=== PATIENT | male | born 2005 | race Caucasian/White ===

== ENCOUNTER 2023-09-09 12:26 | Inpatient (IN) | payer OTHER, SELFPAY ==
[2023-09-09 12:31] VITALS: BMI 40.9
[2023-09-09 12:32] VITALS: BP 130/78; PULSE 66; RESP 13; TEMP 36.7; O2SAT 98
[2023-09-09 14:00] VITALS: BP 128/77; PULSE 70; RESP 14; TEMP 36.6; O2SAT 98
--- NOTE | 2023-09-09 14:51 | PC.NURSE ---
PT WAS A DIRECT ADMIT FROM THE [facility] IN [place]. PT WAS ADMITTED FOR INCREASED THOUGHTS OF SI. UPON ADMIT TO THE NPU PT APPEARS FLAT IN AFFECT. PT STATED TO THIS NURSE THAT HIS PSYCHIATRIST STATED THAT HE SHOULD COME IN BECAUSE AFTER HE RESTARTED TAKING ZOLOFT HIS SUICIDAL THOUGHTS STARTED GETTING WORSE. PT STATED THAT HE IS UNSURE ON WHETHER OR NOT THIS IS DUE TO THE MEDICATION OR LIFE STRESSORS. PT ENDORSE ANXIETY RATING IT A 1/10 ON A SCALE OF 0-10 WHERE 0 IS NONE AND 10 IS THE WORST. PT CURRENTLY DENIES SI/HI/AH/VH AND DEPRESSION. PT STATED THE LAST TIME HE THOUGHT OF HURTING HIMSELF WAS A COUPLE WEEKS AGO. PT ENDORSES HAVING HOMICIDAL THOUGHTS ABOUT A MONTH AGO. PT STATES HE HAS HAD BRAIN SURGERY BUT COULD NOT EXPLAIN THE REASON, PT ALSO STATES THAT HE HAS A RIGHT SIDED VISUAL FIELD CUT BUT COULD NOT EXPLAIN THE CAUSE.
[2023-09-09 20:03] VITALS: BP 152/79; PULSE 66; RESP 18; TEMP 36.6; O2SAT 97
[2023-09-09] MEDS: topiramate 100 mg Tablet PO (20:21)
[2023-09-09] MEDS: lacosamide 50 mg Tablet 200 MG PO (20:21)
[2023-09-09] MEDS: CENOBAMATE 50 MG 50 EACH PO (20:21)
[2023-09-09] MEDS: NON-FORMULARY MEDICATION (Clobazam 20 mg tablet) 20 EACH PO (20:21)
[2023-09-09 21:30] VITALS: PULSE 74; O2SAT 98
[2023-09-10 06:00] VITALS: BP 101/56; PULSE 51; RESP 16; TEMP 36.4; O2SAT 97
[2023-09-10] MEDS: topiramate 25 mg Tablet 50 MG PO (08:43)
[2023-09-10] MEDS: NON-FORMULARY MEDICATION (Clobazam 20 mg tablet) 20 EACH PO ×2 (08:43→20:08)
[2023-09-10] MEDS: lacosamide 50 mg Tablet 200 MG PO ×2 (08:43→20:07)
--- NOTE | 2023-09-10 11:31 | W.PM.NPUH&PS ---
Providers/Chief Complaint Admitting Physician: Homer Hernandez MD Chief Complaint: SI HPI NPU History of Present Illness Jeremy Maldonado is a 18 year old male who presented to outside emergency department reportedly directly from his psychiatrist office with reports of suicidal ideation with a plan to either stab himself or walk in front of a semitruck. 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 They identified him reporting that another cost of that procedure was that he lost some vision and has had some level of being withdrawn since then. There are reports that he ran out of his Zoloft which had been a very functional medication for him. In their examination of him there is some report of a history of ADHD and occasional homicidal thoughts and anger. His laboratory studies were essentially normal with no significant outliers. He was positive for benzodiazepines but is prescribed clobazam. He was transferred to [facility] and admitted to the neuropsychiatric unit for definitive treatment of these issues. He presented today reporting: CHIEF COMPLAINT Patient reports feelings of anxiety and depression. He has been having suicidal thoughts but denies any intent or plan. HISTORY OF THE PRESENT COMPLAINT Jeremy, a 19-year-old male, has been dealing with symptoms of anxiety and depression. He has been on Zoloft for these conditions, but recently ran out of his medication. He expressed a desire to increase his dosage from 100mg to 200mg, but his healthcare provider suggested a more cautious approach, increasing the dosage by 50mg increments. He reported having thoughts of self-harm, specifically mentioning a scenario where he would stab himself in the Dhaval's apple. However, he clarified that these thoughts were not indicative of an immediate desire to harm himself, but rather a reflection of his frustration and low mood. He also mentioned having issues with anger management, which he noticed after starting to have seizures. Jeremy has a history of seizures, which began around 2017. 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 He underwent surgery to address this issue, which resulted in some loss of vision. He is currently taking a new medication for his seizures, which has been effective in preventing them. In terms of his emotional state, Jeremy described feeling low, helpless, hopeless, and worthless. He also reported having sleep difficulties, although he does not believe these are related to his depression. He mentioned that he often worries about what others think of him, which contributes to his anxiety. He also experiences physical symptoms of anxiety, such as a racing heart and sweaty palms, particularly when facing new situations. Jeremy has a history of therapy, which he began in 2022. However, he stopped attending therapy sessions in July because he felt they were not making progress. He also mentioned a traumatic experience in his childhood, where he was bullied for a year at a [employer] school he attended. This experience has left a lasting impact on him, and he believes it may have contributed to his current mental health issues. In terms of substance use, Jeremy reported that he does not smoke, drink, or use drugs, as these substances interfere with his seizures. He is currently unemployed and has been looking for a job. He has not been in a romantic relationship and has not had children. He identifies as heterosexual. He has a belief in a higher power, referring to it as the man upstairs . During the consultation, Jeremy also mentioned that he had severe downs and had held a knife to himself but talked himself out of it, citing his family as a reason not to harm himself. He described this act as selfish. He also mentioned that he has a strong memory, which he discovered after his surgery. We discussed the risks, benefits and alternatives of continuing the Zoloft and possibly increasing it to 150 mg p.o. daily ultimately and he understood and agreed to proceed as is documented in this note. MENTAL HEALTH HISTORY Patient has been on Zoloft for anxiety and depression. He has been taking it regularly until two days ago. He has been on no other psychiatric medication. He has been in therapy since 2022 but stopped in July because he felt it wasn't helping. He has never been in a psychiatric hospital before. SOCIAL HISTORY Patient does not smoke, drink, or use any drugs due to their effect on his seizures. He has a family history of mental health issues, with his uncle being in an asylum and heavily medicated, and his mother and sisters also having mental health issues. He has a history of being bullied in school, which he feels may have contributed to his current mental health issues. Currently unemployed and living with his parents and siblings. No legal issues reported. Meds NPU Home Medications Medication Instructions Recorded Confirmed Last Taken Type cenobamate 50 mg tablet (Xcopri) 50 mg PO BEDTIME 09/09/23 09/09/23 Unknown History clobazam 20 mg tablet 20 mg PO BID 09/09/23 09/09/23 Unknown History lacosamide 100 mg tablet 200 mg PO BID 09/09/23 09/09/23 Unknown History sertraline 100 mg tablet 100 mg PO DAILY 09/09/23 09/09/23 Unknown History topiramate 50 mg tablet 50 mg PO DAILY 09/09/23 09/09/23 Unknown History topiramate 50 mg tablet 100 mg PO BEDTIME 09/09/23 09/09/23 Unknown History Allergies Allergy/AdvReac Type Severity Reaction Status Date / Time nut - unspecified Allergy Unknown Unknown Verified 09/09/23 15:39 Fish Containing Products Allergy Unknown Verified 09/09/23 15:26 tree nut Allergy Unknown Verified 09/09/23 15:26 Mental Status Exam MSE Comments: This is an obese white male in hospital scrubs with limited grooming and adequate eye contact. No abnormal movements except for mild psychomotor retardation. Cooperative with exam in mild distress. Speech was decreased rate and volume. Mood described as depressed and anxious, affect congruent . Thought process organized. Thought content: Patient reports feelings of anxiety and depression. He has been having suicidal thoughts but denies any intent or plan. He also denied homicidal ideation. He r does report having difficulty managing his anger since his seizures started. He also reports having obsessive thoughts and being very anxious about what others think of him. No current thoughts of self-harm or harm to others. No paranoia or hallucinations reported. there were no delusions reported or noted, he denied any auditory or visual hallucinations. Attention and concentration appeared intact and memory appeared mostly reliable but none were formally tested. He is alert and oriented x3. Insight and judgment are limited and impulse control is limited. 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 He reports feelings of anxiety and depression and has been having suicidal thoughts. He denies any intent or plan. He has a family history of mental health issues. He has been on Zoloft for his mental health issues but stopped taking it two days ago. He has been in therapy but stopped because he felt it wasn't helping. 1. Continue current medication. 2. Continue every 15 minute checks for safety. 3. Encourage individual, group and milieu therapy. 4. Encourage sober living treatment after discharge at the highest level of care to which he is willing to commit. Involuntary Hold Information 96 Hour Hold: 96 Hour Involuntary Admission: No Attestations NPU Medical Necessity Statement*: Inpatient hospitalization is medically necessary and the clinically appropriate intervention at this time. We will monitor medications and make changes as indicated. He will be in the hospital for over 2 midnights. Likely length of stay 2-3 days. Coding Level of Care Code Acute Code for Chg Fwd Diagnoses Status post craniotomy Z98.890 Status post lobectomy of brain Z90.89 Major depressive disorder, recurrent severe without psychotic features F33.2 Anxiety disorder F41.9
[2023-09-10 14:00] VITALS: BP 144/79; PULSE 57; RESP 13; TEMP 36.8; O2SAT 98
[2023-09-10] MEDS: CENOBAMATE 50 MG 50 EACH PO (20:08)
[2023-09-10] MEDS: topiramate 100 mg Tablet PO (20:08)
[2023-09-10] MEDS: cetylpyridinium Lozenge 1 EACH MUCOUS MEM (20:10)
[2023-09-10 20:32] VITALS: BP 144/87; PULSE 69; RESP 18; TEMP 36.6; O2SAT 98
[2023-09-11 06:00] VITALS: BP 123/73; PULSE 85; RESP 16; TEMP 36.4; O2SAT 98
--- NOTE | 2023-09-11 07:59 | W.PM.NPUPNS ---
Subjective NPU Subjective: Patient presented today reporting that he is doing fine. He reports that he is not having any increase in suicidal thinking and that he continues to feel safe to go home. We discussed the plan of connecting with the social work team tomorrow and then considering discharge planning. We discussed the likelihood of discharge in the next 48 hours. He denied any side effects of the medication. Mental Status Exam MSE Comments: This is an obese white male in hospital scrubs with limited grooming and adequate eye contact. No abnormal movements except for mild psychomotor retardation. Cooperative with exam in mild distress. Speech was decreased rate and volume. Mood described as depressed and anxious, affect congruent . Thought process organized. Thought content: Patient reports feelings of anxiety and depression. He has been having suicidal thoughts but denies any intent or plan. He also denied homicidal ideation. He r does report having difficulty managing his anger since his seizures started. He also reports having obsessive thoughts and being very anxious about what others think of him. No current thoughts of self-harm or harm to others. No paranoia or hallucinations reported. there were no delusions reported or noted, he denied any auditory or visual hallucinations. Attention and concentration appeared intact and memory appeared mostly reliable but none were formally tested. He is alert and oriented x3. Insight and judgment are limited and impulse control is limited. 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 He reports feelings of anxiety and depression and has been having suicidal thoughts. He denies any intent or plan. He has a family history of mental health issues. He has been on Zoloft for his mental health issues but stopped taking it two days ago. He has been in therapy but stopped because he felt it wasn't helping. 1. Continue current medication. Consider increasing Zoloft in the morning. 2. Continue every 15 minute checks for safety. 3. Encourage individual, group and milieu therapy. 4. Encourage sober living treatment after discharge at the highest level of care to which he is willing to commit. Involuntary Hold Information 96 Hour Hold: 96 Hour Involuntary Admission: No Attestations NPU Medical Necessity Statement*: Inpatient hospitalization is medically necessary and the clinically appropriate intervention at this time. We will monitor medications and make changes as indicated. Likely length of stay 1-3 days. Coding Level of Care Code Acute Code for Chg Fwd Diagnoses Status post craniotomy Z98.890 Status post lobectomy of brain Z90.89 Major depressive disorder, recurrent severe without psychotic features F33.2 Anxiety disorder F41.9
[2023-09-11] MEDS: topiramate 25 mg Tablet 50 MG PO (09:04)
[2023-09-11] MEDS: lacosamide 50 mg Tablet 200 MG PO ×2 (09:07→20:14)
[2023-09-11] MEDS: NON-FORMULARY MEDICATION (Clobazam 20 mg tablet) 20 EACH PO ×2 (09:07→20:14)
[2023-09-11 14:00] VITALS: BP 147/70; PULSE 50; RESP 13; TEMP 36.9; O2SAT 99
[2023-09-11 19:55] VITALS: BP 147/78; PULSE 58; RESP 16; TEMP 36.4; O2SAT 98
[2023-09-11] MEDS: CENOBAMATE 50 MG 50 EACH PO (20:13)
[2023-09-11] MEDS: topiramate 100 mg Tablet PO (20:15)
[2023-09-12 06:00] VITALS: BP 129/78; PULSE 79; RESP 16; TEMP 36.3; O2SAT 97
[2023-09-12] MEDS: topiramate 25 mg Tablet 50 MG PO (08:44)
[2023-09-12] MEDS: lacosamide 50 mg Tablet 200 MG PO (08:45)
[2023-09-12] MEDS: NON-FORMULARY MEDICATION (Clobazam 20 mg tablet) 20 EACH PO (08:45)
[2023-09-12] MEDS: sertraline 100 mg Tablet PO (12:57)
[2023-09-12 14:00] VITALS: BP 136/66; PULSE 79; RESP 16; TEMP 36.6; O2SAT 98
--- NOTE | 2023-09-12 15:02 | W.PM.NPUDCS ---
Diagnoses at Discharge Discharge Diagnosis (1) Status post craniotomy: Status: Acute (2) Status post lobectomy of brain: Status: Acute (3) Major depressive disorder, recurrent severe without psychotic features: Status: Acute (4) Anxiety disorder: Status: Acute Reason for Visit Reason for Visit: SI Brief History: History of Present Illness Jeremy Maldonado is a 18 year old male who presented to outside emergency department reportedly directly from his psychiatrist office with reports of suicidal ideation with a plan to either stab himself or walk in front of a semitruck. 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 They identified him reporting that another cost of that procedure was that he lost some vision and has had some level of being withdrawn since then. There are reports that he ran out of his Zoloft which had been a very functional medication for him. In their examination of him there is some report of a history of ADHD and occasional homicidal thoughts and anger. His laboratory studies were essentially normal with no significant outliers. He was positive for benzodiazepines but is prescribed clobazam. He was transferred to [facility] and admitted to the neuropsychiatric unit for definitive treatment of these issues. He presented today reporting: CHIEF COMPLAINT Patient reports feelings of anxiety and depression. He has been having suicidal thoughts but denies any intent or plan. HISTORY OF THE PRESENT COMPLAINT Jeremy, a 19-year-old male, has been dealing with symptoms of anxiety and depression. He has been on Zoloft for these conditions, but recently ran out of his medication. He expressed a desire to increase his dosage from 100mg to 200mg, but his healthcare provider suggested a more cautious approach, increasing the dosage by 50mg increments. He reported having thoughts of self-harm, specifically mentioning a scenario where he would stab himself in the [place]haval's apple. However, he clarified that these thoughts were not indicative of an immediate desire to harm himself, but rather a reflection of his frustration and low mood. He also mentioned having issues with anger management, which he noticed after starting to have seizures. Jeremy has a history of seizures, which began around 2017. 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 He underwent surgery to address this issue, which resulted in some loss of vision. He is currently taking a new medication for his seizures, which has been effective in preventing them. In terms of his emotional state, Jeremy described feeling low, helpless, hopeless, and worthless. He also reported having sleep difficulties, although he does not believe these are related to his depression. He mentioned that he often worries about what others think of him, which contributes to his anxiety. He also experiences physical symptoms of anxiety, such as a racing heart and sweaty palms, particularly when facing new situations. Jeremy has a history of therapy, which he began in 2022. However, he stopped attending therapy sessions in July because he felt they were not making progress. He also mentioned a traumatic experience in his childhood, where he was bullied for a year at a [employer] school he attended. This experience has left a lasting impact on him, and he believes it may have contributed to his current mental health issues. In terms of substance use, Jeremy reported that he does not smoke, drink, or use drugs, as these substances interfere with his seizures. He is currently unemployed and has been looking for a job. He has not been in a romantic relationship and has not had children. He identifies as heterosexual. He has a belief in a higher power, referring to it as the man upstairs . During the consultation, Jeremy also mentioned that he had severe downs and had held a knife to himself but talked himself out of it, citing his family as a reason not to harm himself. He described this act as selfish. He also mentioned that he has a strong memory, which he discovered after his surgery. We discussed the risks, benefits and alternatives of continuing the Zoloft and possibly increasing it to 150 mg p.o. daily ultimately and he understood and agreed to proceed as is documented in this note. MENTAL HEALTH HISTORY Patient has been on Zoloft for anxiety and depression. He has been taking it regularly until two days ago. He has been on no other psychiatric medication. He has been in therapy since 2022 but stopped in July because he felt it wasn't helping. He has never been in a psychiatric hospital before. SOCIAL HISTORY Patient does not smoke, drink, or use any drugs due to their effect on his seizures. He has a family history of mental health issues, with his uncle being in an asylum and heavily medicated, and his mother and sisters also having mental health issues. He has a history of being bullied in school, which he feels may have contributed to his current mental health issues. Currently unemployed and living with his parents and siblings. No legal issues reported. Hospital Course Hospital Course He acclimated to the individual, group and milieu therapies provided. He presented with some concerns about access to his medication and likely plateauing on his current dose of Zoloft. We did increase the Zoloft to 150 mg p.o. daily at discharge. His other medications were maintained at their current doses. He worked with the treatment team for appropriate outpatient follow-up. He had significant improvement during the hospitalization and and she was able to contract for safety outside of the hospital prior to discharge. During the hospitalization, patient had routine laboratory studies which were within normal limits except for few outliers. Additionally there was a general medical evaluation which was also within normal limits and revealed no new acute processes. Discharge Summary: At the time of discharge, he denied psychosis or lethality. Mood and anxiety were well managed. Patient endorsed a plan to avoid all drugs of abuse and follow-up with the aftercare recommendations of the treatment team, but was resistant to the initial sober living options that had been procured. Patient was evaluated and deemed to be absent credible lethality, and was voluntary and was no longer interested in inpatient hospitalization, so she was discharged. Involuntary Hold Information 96 Hour Hold: 96 Hour Involuntary Admission: No Mental Status Exam MSE Comments: This is an obese white male in hospital scrubs with limited grooming and adequate eye contact. No abnormal movements except for mild psychomotor retardation. Cooperative with exam in mild distress. Speech was decreased rate and volume. Mood described as depressed and anxious, affect congruent . Thought process organized. Thought content: Patient reports feelings of anxiety and depression. He has been having suicidal thoughts but denies any intent or plan. He also denied homicidal ideation. He r does report having difficulty managing his anger since his seizures started. He also reports having obsessive thoughts and being very anxious about what others think of him. No current thoughts of self-harm or harm to others. No paranoia or hallucinations reported. there were no delusions reported or noted, he denied any auditory or visual hallucinations. Attention and concentration appeared intact and memory appeared mostly reliable but none were formally tested. He is alert and oriented x3. Insight and judgment are limited and impulse control is limited. Discharge Data Vitals: Last Vital Signs Temp 97.8 F 09/12/23 14:00 Pulse 79 09/12/23 14:00 Resp 16 09/12/23 14:00 BP 136/66 09/12/23 14:00 Pulse Ox 98 09/12/23 14:00 O2 Del Method Room Air 09/12/23 14:00 FiO2 21 09/09/23 21:30 Discharge Plan Discharge Patient Disposition: Home Condition: Stable Prescriptions: New sertraline 100 mg Tablet 100 mg PO DAILY 30 Days Qty: 45 1RF Rx Instructions: Take 1 for 1 week then increase to 1.5 if tolerated. Continued topiramate 50 mg tablet 50 mg PO DAILY topiramate 50 mg tablet 100 mg PO BEDTIME lacosamide 100 mg tablet 200 mg PO BID clobazam 20 mg tablet 20 mg PO BID Xcopri 50 mg tablet 50 mg PO BEDTIME Discontinued sertraline 100 mg tablet 100 mg PO DAILY Discharge Orders: Discharge Order (Routine); Ordered 09/12/23 Ordered By: Micha Browne Referrals: [facility] -Dr. Cristine Celis [Other] - 09/27/23 8:45 am (Follow up) [facility]-Dr. Beatrice Xie [Other] - 10/18/23 10:00 am Discharge Diet: Regular Discharge Activity: Resume usual activity Patient Instructions: Depression, Sertraline (By mouth) (Zoloft), Help Prevent Suicide (DC), Suicide Prevention (DC), Opioid Safety Discharge Attestations NPU Time Spent in Discharge Care*: less than 30 min Specific Discharge Activities: Specific discharge activities: educating patient, discussing with hospice case manager/social workers/dc planners, documenting/other paperwork and evaluating patient/reviewing data Coding Level of Care Code Acute Code for Chg Fwd Diagnoses Status post craniotomy Z98.890 Status post lobectomy of brain Z90.89 Major depressive disorder, recurrent severe without psychotic features F33.2 Anxiety disorder F41.9
[2023-09-12 15:07] VITALS: BP 136/66; PULSE 79; RESP 16; TEMP 36.6; O2SAT 98
== END 2023-09-12 15:31 | disposition home or self-care (01) | DRG 885 ==
PROVIDERS: Admitting Provider Psychiatry & Neurology Psychiatry; Visit Provider Psychiatry & Neurology Psychiatry
DX: F33.2 Major depressive disorder, recurrent severe without psychotic features (principal); R45.851 Suicidal ideations; Z68.41 Body mass index [BMI] 40.0-44.9, adult; F41.9 Anxiety disorder, unspecified; G40.909 Epilepsy, unspecified, not intractable, without status epilepticus; H54.7 Unspecified visual loss; E66.9 Obesity, unspecified; Z98.890 Other specified postprocedural states
CPT/HCPCS: 94660; 97150; 97165